=== PATIENT | female | born 1980 | race Caucasian/White ===

== ENCOUNTER 2024-09-07 19:25 | Emergency (ER) | payer SELFPAY ==
[~2024-09-07] VITALS: Ht 165.1 cm; Wt 76.0 kg
[2024-09-07 19:29] VITALS: BP 138/86; PULSE 69; RESP 18; TEMP 36.8; O2SAT 99
== END 2024-09-07 22:36 | disposition left against medical advice (07) ==
LOC: ER 19:25
DX: R10.9 Unspecified abdominal pain (principal); E78.00 Pure hypercholesterolemia, unspecified; Z53.21 Procedure and treatment not carried out due to patient leaving prior to being seen by health care provider